=== PATIENT | male | born 1990 | race Caucasian/White ===

== ENCOUNTER 2017-11-27 13:48 | Inpatient (IN) | payer OTHER, MEDICAID ==
[2017-11-27] MEDS ORDERED: Iohexol 240 (50 ml) PO STA (14:51)
--- NOTE | 2017-11-27 15:04 | C.PDOC ---
History Of Present Illness 27 y/o male with no sig pmh, presents to ED with multiple episodes of vomiting since Monday, and diffuse abdominal pain which patient reports is sharp and constant. pt reports similar episode in past that resolved after 2 days. pt sts no bm yesterday. endorses drinking alcohol on Mon and Sat nights. pt took pepto bismol and advil with no relief. denies fever and chills. Time Seen by Provider: 11/27/17 14:35 Chief Complaint (Nursing): Abdominal Pain History/Exam Limitations: no limitations Onset/Duration Of Symptoms: Days (2) Current Symptoms Are (Timing): Still Present Severity: Severe Location Of Pain/Discomfort: Diffuse Radiation Of Pain To:: None Associated Symptoms: Nausea, Vomiting, Constipation, Urinary Symptoms. denies: Fever, Chills, Diarrhea Exacerbating Factors: None Alleviating Factors: None Last Bowel Movement: Yesterday Past Medical History Reviewed: Historical Data, Nursing Documentation, Vital Signs Vital Signs: Last Vital Signs Temp 98.4 F 11/27/17 17:00 Pulse 77 11/27/17 17:00 Resp 18 11/27/17 17:00 BP 162/92 H 11/27/17 17:58 Pulse Ox 96 11/27/17 17:00 - Medical History PMH: No Chronic Diseases Surgical History: No Surg Hx Family History: States: Unknown Family Hx - Social History Hx Tobacco Use: No Hx Alcohol Use: Yes Hx Substance Use: No - Immunization History Hx Tetanus Toxoid Vaccination: Yes Hx Influenza Vaccination: No Hx Pneumococcal Vaccination: No Review Of Systems Constitutional: Negative for: Fever, Chills Cardiovascular: Negative for: Chest Pain, Palpitations Respiratory: Negative for: Cough, Shortness of Breath Gastrointestinal: Positive for: Nausea, Vomiting, Abdominal Pain, Constipation. Negative for: Diarrhea Genitourinary: Positive for: Dysuria Skin: Negative for: Rash Neurological: Negative for: Weakness, Numbness Physical Exam - Physical Exam Appears: Non-toxic, Other (uncomfortable) Skin: Warm, Dry Head: Atraumatic, Normacephalic Oral Mucosa: Dry Neck: Supple Cardiovascular: Rhythm Regular, No Murmur Respiratory: No Decreased Breath Sounds, No Wheezing Gastrointestinal/Abdominal: Bowel Sounds, Soft, Tenderness (epigastric and right lower quadrant), Distention (mild), No Guarding, No Rebound Back: No CVA Tenderness Neurological/Psych: Oriented x3, Normal Speech, Normal Cognition ED Course And Treatment - Laboratory Results Result Diagrams: 11/27/17 15:14 11/27/17 15:14 O2 Sat by Pulse Oximetry: 96 Medical Decision Making Medical Decision Making: pt with a pain, nausea, vomiting. no bm, s/p drinking alcohol. labs, pepcid zofran ivf,. ct scan abdomen 1800 ct shows pancreatitis, consistent with lab work, discussed with Dr Mathews, will admit to her service. Disposition Discussed With : Josephine Mathews Doctor Will See Patient In The: Hospital - Disposition Disposition: HOSPITALIZED Disposition Time: 18:03 Condition: STABLE Forms: [facility] (Chilean) - Clinical Impression Clinical Impression: Acute pancreatitis
[2017-11-27] MEDS ORDERED: Sodium Chloride 0.9% 1,000 ML ONE ×2 (15:05→17:55)
[2017-11-27] MEDS ORDERED: Iohexol 240 (50 ml) ONE (15:06)
[2017-11-27 15:19] LABS: BASO % 0.2 % (0.0-2.0); EOS % 0.1 % (0.0-4.0); HEMOGLOBIN 16.6 g/dL (12.0-18.0); LYMPH # 1.2 K/uL (1.0-4.3); LYMPH % 9.1 % (20.0-40.0); MEAN CELL VOLUME 87.4 fL (80.0-94.0); MEAN CORPUSCULAR HGB CONC 34.3 g/dL (33.0-37.0); MEAN PLATELET VOLUME 7.8 fL (7.2-11.7); MONO # 1.3 K/uL (0.0-0.8); MONO % 10.1 % (0.0-10.0); NEUT # 10.4 K/uL (1.8-7.0); NEUT % 80.5 % (50.0-75.0); PLATELET COUNT 256 K/uL (130-400); RBC 5.55 Mil/uL (4.40-5.90); WHITE BLOOD COUNT 12.9 K/uL (4.8-10.8)
[2017-11-27 15:24] LABS: URINE BILIRUBIN NEGATIVE (NEGATIVE); URINE BLOOD NEGATIVE (NEGATIVE); URINE CLARITY Clear (Clear); URINE COLOR Yellow (YELLOW); URINE GLUCOSE (UA) NORMAL (Normal); URINE LEUKOCYTE ESTERASE NEG Leu/uL (Negative); URINE PROTEIN NEGATIVE (NEGATIVE); URINE UROBILINOGEN NORMAL mg/dL (0.2-1.0)
[2017-11-27 15:31] LABS: CALCIUM 9.4 mg/dl (8.6-10.4); GFR AFRICAN-AMERICAN > 60; GFR NON-AFRICAN AMERICAN > 60
[2017-11-27] MEDS ORDERED: Sodium Chloride 0.9% 1,000 ML IV ONE (15:31)
[2017-11-27 15:39] LABS: BANDS 1 % (0-2); LYMPHOCYTE 11 % (20-40); MONOCYTE 12 % (0-10); NEUTROPHIL 76 % (50-75); TOTAL CELLS COUNTED 100
[2017-11-27 15:40] LABS: PLATELET ESTIMATE NORMAL (NORMAL)
[2017-11-27 15:43] LABS: ALB/GLOB RATIO 1.4 (1.0-2.1); ALBUMIN 5.1 g/dL (3.5-5.0); ALT/SGPT 106 U/L (21-72); AST/SGOT 63 U/L (17-59); BLOOD UREA NITROGEN 11 mg/dL (9-20)
[2017-11-27 16:27] LABS: LIPASE 5997 U/L (23-300)
[2017-11-27] MEDS ORDERED: Iohexol 350mg/ml 100 ML ONE (16:39)
[2017-11-27 16:54] LABS: AMYLASE 1040 U/L (30-110)
--- NOTE | 2017-11-27 17:23 | CT ---
Date of service: 11/27/2017 PROCEDURE: CT Abdomen and Pelvis with contrast HISTORY: Abdominal/stomach pain COMPARISON: None. TECHNIQUE: Contrast dose: 100 cc Visipaque 320 Radiation dose: Total exam DLP = 970.57 mGy-cm. This CT exam was performed using one or more of the following dose reduction techniques: Automated exposure control, adjustment of the mA and/or kV according to patient size, and/or use of iterative reconstruction technique. FINDINGS: LOWER THORAX: Unremarkable. LIVER: Hepatic steatosis. No focal masses. No intrahepatic bile duct dilatation or perihepatic ascites. GALLBLADDER AND BILE DUCTS: Unremarkable. PANCREAS: Diffuse, mild inflammatory changes. These extend to the peripancreatic fat. No evidence of necrotizing pancreatitis. Trace fluid about the body and tail of the pancreas adjacent to the descending colon and left kidney. Similar less pronounced changes track inferiorly about the mesenteries and adjacent duodenum and small bowel. SPLEEN: Unremarkable. ADRENALS: Unremarkable. No mass. KIDNEYS AND URETERS: Unremarkable. No hydronephrosis. No solid mass. VASCULATURE: Unremarkable. No aortic aneurysm. BOWEL: Unremarkable. No obstruction. No gross mural thickening. APPENDIX: Normal appendix. PERITONEUM: Trace fluid in the abdomen and pelvis likely related to acute pancreatitis. LYMPH NODES: Unremarkable. No enlarged lymph nodes. BLADDER: Unremarkable. REPRODUCTIVE: Unremarkable. BONES: No acute fracture. OTHER FINDINGS: None. IMPRESSION: CT manifestations of acute pancreatitis, mild. No evidence of necrotizing pancreatitis. No visible pseudocyst or significant phlegmon. Additional benign and/or incidental findings described above.
[2017-11-27] MEDS ORDERED: Morphine 4 MG/ML VIAL ONE ×2 (17:55→19:59)
[2017-11-27] MEDS: Sodium Chloride 0.9% 1,000 ML IV SCH ×2 (18:00→23:39)
--- NOTE | 2017-11-27 18:50 | CP.PCM.HP ---
<WattIvan - Last Filed: 11/27/17 19:23> History of Present Illness - History of Present Illness History of Present Illness: Ivan Watt, Linesperson, Hospitalist History & Physical Patient is a 27 year old male with no known past medical history presenting with chief complaint of diffuse abdominal pain that began two days prior, accompanied by nausea, vomiting, and constipation. Patient states that the pain is sharp and constant with radiation to his back. He states he has been unable to eat or drink due to vomiting. He has had two episode of vomiting today. His vomit contained a small amount of blood, not more than a shot full. He states he drank approximately 20 beers this past weekend. His last drink was on Monday. He has tried pepto bismol and motrin to help alleviate his pain but they have not been effective. Past medical history: None Past surgical: None Social: Drinks approximately 6-8 beers per day Monday-Monday. Occasionally smokes cigarettes. Denies recreational drug use. Works as a cook. Allergies: NKDA Family history: Mother (DM) Home medications: None PMD: None HPI was obtained with the assistance of teacher [employer] Lottie [employer]. Present on Admission - Present on Admission Any Indicators Present on Admission: No History of DVT/PE: No History of Uncontrolled Diabetes: No Urinary Catheter: No Decubitus Ulcer Present: No History Surgical Site Infection Following: None Review of Systems - Constitutional Constitutional: absent: Fatigue, Fever, Headache - EENT Eyes: absent: Change in Vision Ears: absent: Abnormal Hearing Nose/Mouth/Throat: absent: Sore Throat - Cardiovascular Cardiovascular: absent: Chest Pain, Diaphoresis, Dyspnea - Respiratory Respiratory: absent: Cough, Dyspnea, Wheezing - Gastrointestinal Gastrointestinal: Abdominal Pain, Constipation, Hematemesis, Nausea, Vomiting - Genitourinary Genitourinary: absent: Dysuria, Flank Pain, Urinary Incontinence - Musculoskeletal Musculoskeletal: absent: Abnormal Gait, Joint Swelling, Muscle Weakness - Neurological Neurological: absent: Abnormal Movements, Convulsions, Headaches Past Patient History - Past Social History Smoking Status: Light Smoker < 10 Cigarettes Daily Alcohol: > 2 Drinks/Day Drugs: Denies - PSYCHIATRIC Hx Substance Use: No - SURGICAL HISTORY Hx Surgeries: No Meds Allergies/Adverse Reactions: Allergies Allergy/AdvReac Type Severity Reaction Status Date / Time No Known Allergies Allergy Unverified 11/27/17 14:10 Physical Exam - Constitutional Appears: Non-toxic, No Acute Distress - Head Exam Head Exam: ATRAUMATIC, NORMOCEPHALIC - Eye Exam Eye Exam: EOMI, Normal appearance - ENT Exam ENT Exam: Mucous Membranes Moist, Normal Exam, Normal External Ear Exam - Neck Exam Neck exam: Positive for: Normal Inspection. Negative for: Tenderness - Respiratory Exam Respiratory Exam: Clear to Auscultation Bilateral, NORMAL BREATHING PATTERN. absent: Rales, Rhonchi, Respiratory Distress - Cardiovascular Exam Cardiovascular Exam: REGULAR RHYTHM, +S1, +S2 - GI/Abdominal Exam GI & Abdominal Exam: Hypoactive Bowel Sounds, Soft, Tenderness (diffuse abd tenderness ). absent: Distended, Firm, Guarding - Back Exam Back exam: NORMAL INSPECTION - Neurological Exam Neurological exam: Alert, CN II-XII Intact, Oriented x3 - Psychiatric Exam Psychiatric exam: Normal Affect, Normal Mood - Skin Skin Exam: Dry, Intact, Normal Color Results - Vital Signs Recent Vital Signs: Last Vital Signs Temp 98.4 F 11/27/17 17:00 Pulse 77 11/27/17 17:00 Resp 18 11/27/17 17:00 BP 162/92 H 11/27/17 17:58 Pulse Ox 96 11/27/17 18:03 - Labs Result Diagrams: 11/27/17 15:14 11/27/17 15:14 Labs: Laboratory Results - last 24 hr 11/27/17 11/27/17 11/27/17 15:14 15:14 15:14 WBC 12.9 H RBC 5.55 Hgb 16.6 Hct 48.5 MCV 87.4 MCH 30.0 MCHC 34.3 RDW 14.0 Plt Count 256 MPV 7.8 Neut % (Auto) 80.5 H Lymph % (Auto) 9.1 L [place] % (Auto) 10.1 H Eos % (Auto) 0.1 Baso % (Auto) 0.2 Neut # (Auto) 10.4 H Lymph # (Auto) 1.2 [place]ro # (Auto) 1.3 H Eos # (Auto) 0.0 Baso # (Auto) 0.0 Neutrophils % (Manual) 76 H Band Neutrophils % 1 Lymphocytes % (Manual) 11 L Monocytes % (Manual) 12 H Platelet Estimate Normal Sodium 136 Potassium 4.9 Chloride 95 L Carbon Dioxide 23 Anion Gap 22 H BUN 11 Creatinine 0.7 L Est GFR ( Amer) > 60 Est GFR (Non-Af Amer) > 60 Random Glucose 103 Calcium 9.4 Magnesium Total Bilirubin 1.3 AST 63 H ALT 106 H Alkaline Phosphatase 67 Total Protein 8.8 H Albumin 5.1 H Globulin 3.7 Albumin/Globulin Ratio 1.4 Amylase Lipase 5997 H Urine Color Yellow Urine Clarity Clear Urine pH 5.0 Ur Specific Roy 1.023 Urine Protein Negative Urine Glucose (UA) Normal Urine Ketones 1+ H Urine Blood Negative Urine Nitrate Negative Urine Bilirubin Negative Urine Urobilinogen Normal Ur Leukocyte Esterase Neg Urine WBC (Auto) 1 Urine RBC (Auto) 2 Alcohol, Quantitative 11/27/17 16:39 WBC RBC Hgb Hct MCV MCH MCHC RDW Plt Count MPV Neut % (Auto) Lymph % (Auto) [place]ferro % (Auto) Eos % (Auto) Baso % (Auto) Neut # (Auto) Lymph # (Auto) [place]ro # (Auto) Eos # (Auto) Baso # (Auto) Neutrophils % (Manual) Band Neutrophils % Lymphocytes % (Manual) Monocytes % (Manual) Platelet Estimate Sodium Potassium Chloride Carbon Dioxide Anion Gap BUN Creatinine Est GFR ( Amer) Est GFR (Non-Af Amer) Random Glucose Calcium Magnesium 2.0 Total Bilirubin AST ALT Alkaline Phosphatase Total Protein Albumin Globulin Albumin/Globulin Ratio Amylase 1040 H Lipase Urine Color Urine Clarity Urine pH Ur Specific Roy Urine Protein Urine Glucose (UA) Urine Ketones Urine Blood Urine Nitrate Urine Bilirubin Urine Urobilinogen Ur Leukocyte Esterase Urine WBC (Auto) Urine RBC (Auto) Alcohol, Quantitative < 10 Assessment & Plan - Assessment and Plan (Free Text) Assessment: Patient is a 27 year old male with no known past medical history presenting with chief complaint of diffuse abdominal pain that began two days prior, accompanied by nausea, vomiting, and constipation and was found to have acute pancreatitis on abd/pelvis CT. Plan: Acute pancreatitis - CT Abdomen/pelvis shows diffuse, mild inflammatory changes of pancreas extending to peripancreatic fat. No evidence of necrotizing pancreatitis. No visible pseudocyst or significant phlegmon. - Abdominal US for evaluation of cholelithiasis and cbd - NS 200 ccs/hour - NPO - Lipid panel - Blood alcohol level <10 - [place] criteria: pending LDH - Lipase elevated at 5997 - GI consulted (Dr. العراقي) - Morphine 4 mg IV Q5H PRN severe pain Alcohol abuse - Last drink was on Monday - Ativan 1 mg IV q6H PRN for symptoms of alcohol withdrawal - [facility] protocol - Thiamine 100 mg IV x 1 day; folic acid - Will start multivitamin once able to tolerate PO intake - Seizure precautions - Aspiration precautions Overweight - TSH - Alcohol level in AM - Lipid panel Prophylaxis - Ambulatory - SCDs b/l while in bed Ivan Watt PGY 1 <Josephine Mathews V - Last Filed: 11/28/17 07:16> Results - Vital Signs Recent Vital Signs: Last Vital Signs Temp 99.3 F 11/27/17 20:55 Pulse 90 11/27/17 20:55 Resp 16 11/27/17 20:55 BP 170/100 H 11/27/17 20:55 Pulse Ox 97 11/27/17 20:55 - Labs Result Diagrams: 11/27/17 15:14 11/27/17 15:14 Labs: Laboratory Results - last 24 hr 11/27/17 11/27/17 11/27/17 15:14 15:14 15:14 WBC 12.9 H RBC 5.55 Hgb 16.6 Hct 48.5 MCV 87.4 MCH 30.0 MCHC 34.3 RDW 14.0 Plt Count 256 MPV 7.8 Neut % (Auto) 80.5 H Lymph % (Auto) 9.1 L [place]fer[place] % (Auto) 10.1 H Eos % (Auto) 0.1 Baso % (Auto) 0.2 Neut # (Auto) 10.4 H Lymph # (Auto) 1.2 [place]ro # (Auto) 1.3 H Eos # (Auto) 0.0 Baso # (Auto) 0.0 Neutrophils % (Manual) 76 H Band Neutrophils % 1 Lymphocytes % (Manual) 11 L Monocytes % (Manual) 12 H Platelet Estimate Normal Sodium 136 Potassium 4.9 Chloride 95 L Carbon Dioxide 23 Anion Gap 22 H BUN 11 Creatinine 0.7 L Est GFR ( Amer) > 60 Est GFR (Non-Af Amer) > 60 Random Glucose 103 Calcium 9.4 Magnesium Total Bilirubin 1.3 AST 63 H ALT 106 H Alkaline Phosphatase 67 Lactate Dehydrogenase Total Protein 8.8 H Albumin 5.1 H Globulin 3.7 Albumin/Globulin Ratio 1.4 Amylase Lipase 5997 H Urine Color Yellow Urine Clarity Clear Urine pH 5.0 Ur Specific Roy 1.023 Urine Protein Negative Urine Glucose (UA) Normal Urine Ketones 1+ H Urine Blood Negative Urine Nitrate Negative Urine Bilirubin Negative Urine Urobilinogen Normal Ur Leukocyte Esterase Neg Urine WBC (Auto) 1 Urine RBC (Auto) 2 Urine Opiates Screen Urine Methadone Screen Ur Barbiturates Screen Ur Phencyclidine Scrn Ur Amphetamines Screen U Benzodiazepines Scrn U Oth Cocaine Metabols U Cannabinoids Screen Alcohol, Quantitative 11/27/17 11/27/17 11/27/17 16:39 18:44 19:47 WBC RBC Hgb Hct MCV MCH MCHC RDW Plt Count MPV Neut % (Auto) Lymph % (Auto) Taliaferro % (Auto) Eos % (Auto) Baso % (Auto) Neut # (Auto) Lymph # (Auto) [place]ferro # (Auto) Eos # (Auto) Baso # (Auto) Neutrophils % (Manual) Band Neutrophils % Lymphocytes % (Manual) Monocytes % (Manual) Platelet Estimate Sodium Potassium Chloride Carbon Dioxide Anion Gap BUN Creatinine Est GFR ( Amer) Est GFR (Non-Af Amer) Random Glucose Calcium Magnesium 2.0 Total Bilirubin AST ALT Alkaline Phosphatase Lactate Dehydrogenase 1787 H Total Protein Albumin Globulin Albumin/Globulin Ratio Amylase 1040 H Lipase Urine Color Urine Clarity Urine pH Ur Specific Roy Urine Protein Urine Glucose (UA) Urine Ketones Urine Blood Urine Nitrate Urine Bilirubin Urine Urobilinogen Ur Leukocyte Esterase Urine WBC (Auto) Urine RBC (Auto) Urine Opiates Screen Positive H Urine Methadone Screen Negative Ur Barbiturates Screen Negative Ur Phencyclidine Scrn Negative Ur Amphetamines Screen Negative U Benzodiazepines Scrn Negative U Oth Cocaine Metabols Negative U Cannabinoids Screen Negative Alcohol, Quantitative < 10 Attending/Attestation - Attestation I have personally seen and examined this patient.: Yes I have fully participated in the care of the patient.: Yes I have reviewed all pertinent clinical information: Yes Notes (Text): This is a late computer entry for 11/27/2017. Patient seen in PT/track for an emergency room approximate 6 PM on 11/27/2017. Patient with a six-year period of frequent alcohol binging on the weekends primarily 6-10 beers of ibanez comes in after 1 day of abdominal pain with associated nausea and vomiting. This is patient's first episode. Patient denies any feeling of depression or hallucinations. Patient reports he drinks this because he hangs out with friends after work and he just get drunk. Patient is accompanied with his coughing at bedside who he last sure his medical information with. Patient had completed CAT scan after pelvis showed mild inflammatory changes of the pancreas extension extending to the pancreatic fat. No noted cholelithiasis on CAT scan. We will order for abdominal ultrasound to rule out any cholelithiasis or any dilated CPD given the patient is an overweight individual. Continue IV fluids patient will remain nothing by mouth. (Criteria patient is a 1 for noted elevated LDH with 1% mortality. Patient reports last drink was on Monday patient does not show any tremors coordination intact no hallucinations we will provide thiamine and folic acid multivitamin via IV until these transition to by mouth. We will check an A1c lipid panel given that he is overweight. Patient is an occasional smoker we'll start NicoDerm patch and be provided tobacco cessation counseling. Also please note UDS was positive for opiates but he did receive morphine prior to the collection. Admitting orders and assessment plan discussed with resident at time of admission. Assessment/Plan 1) Acute pancreatitis Assessment/Plan - GI consulted (Dr. العراقي) on consult-->help appreciated - CT Abdomen/pelvis shows diffuse, mild inflammatory changes of pancreas extending to peripancreatic fat. No evidence of necrotizing pancreatitis. No visible pseudocyst or significant phlegmon. - Abdominal US for evaluation of cholelithiasis and cbd - NS 200 ccs/hour - NPO - Lipid panel - Blood alcohol level <10 - [place] criteria: 1 (elevated LDH) - Lipase elevated at 5997 - Morphine 4 mg IV Q5H PRN severe pain 2) Alcohol abuse Assessment/Plan - Last drink was on Monday - Ativan 1 mg IV q6H PRN for symptoms of alcohol withdrawal - [facility] protocol - Thiamine 100 mg IV x 1 day; folic acid - Will start multivitamin once able to tolerate PO intake - Seizure precautions - Aspiration precautions 3) Overweight Assessment/Plan - TSH - Alcohol level in AM - Lipid panel - [id number] in AM 4) Tobacco Use Assessment/Plan - Tobacco cessation - Nicoderm patch daily 5) Elevated Blood Pressure w/o Diagnoses of Hypertension Assessment/Plan - Likely elevated secondary to pain - Morphine 4mg IV Q4 H PRN severe pain 6) Prophylaxis Assessment/Plan - Ambulatory - SCDs b/l while in bed
[2017-11-27] MEDS: Morphine 4 MG/ML VIAL IVP PRN (19:58)
[2017-11-27 22:16] LABS: BARBITURATES, UR NEGATIVE (NEGATIVE); BENZODIAZEPINES, UR NEGATIVE (NEGATIVE); PHENCYCLIDINE, UR NEGATIVE (NEGATIVE)
[2017-11-27 22:17] LABS: OPIATES, UR POSITIVE (NEGATIVE)
[2017-11-28] MEDS: Morphine 4 MG/ML VIAL IVP PRN ×3 (00:21→09:20)
[2017-11-28] MEDS: Sodium Chloride 0.9% 1,000 ML IV SCH (05:23)
--- NOTE | 2017-11-28 06:28 | CP.PCM.CON ---
<Moises Guevaraulysses - Last Filed: 11/28/17 08:54> History of Present Illness - History of Present Illness History of Present Illness: PGY-4 GI Fellow Initial Consult Note Mr. Stafford is a 27 yo HM with h/o EtOH abuse presenting with complaint of abdominal pain. He states over the last few days he has had progressively worse diffuse, sharp, radiating to his back abdominal pain associated with nausea and vomiting. States emesis once had a small amount of blood but was otherwise non-bloody, non-bilious. States that the drinks about 6-8 beers per night in the weekend but recently drank up to 20 beers one night over the weekend. Denied any fevers, chills, CP, SOB. States he is somewhat constipated. States last BM was 3 days prior described as black formed stool once, usually yellow or brown depending on what he eats. 12 point ROS negative other than stated above MHx: As above SurgHx: Denies Meds: None FamHx: M with DM SocHx: EtOH as above, some tobacco, denied illicits All: NKDA Past Patient History - Past Social History Smoking Status: Light Smoker < 10 Cigarettes Daily Alcohol: > 2 Drinks/Day Drugs: Denies - PSYCHIATRIC Hx Substance Use: No - SURGICAL HISTORY Hx Surgeries: No Meds Allergies/Adverse Reactions: Allergies Allergy/AdvReac Type Severity Reaction Status Date / Time No Known Allergies Allergy Unverified 11/27/17 14:10 - Medications Medications: Current Medications Sodium Chloride (Sodium Chloride 0.9%) 1,000 mls @ 200 mls/hr IV .Q5H [facility] Last Admin: 11/28/17 05:23 Dose: 200 mls/hr Folic Acid 1 mg/ Sodium (Chloride) 100.2 mls @ 60 mls/hr IV DAILY [facility] Lorazepam (Ativan) 1 mg IVP Q6H PRN PRN Reason: Anxiety Morphine Sulfate (Morphine) 4 mg IVP Q4H PRN PRN Reason: Pain, severe (8-10) Last Admin: 11/28/17 04:41 Dose: 4 mg Nicotine (Nicoderm Cq) 1 patch TD DAILY [facility] Ondansetron HCl (Zofran Inj) 4 mg IVP Q6 PRN PRN Reason: Nausea/Vomiting Pneumococcal Polyvalent Vaccine (Pneumovax 23 Vaccine) 0.5 ml IM .ONCE ONE Stop: 11/30/17 11:01 Thiamine HCl (Vitamin B1 Inj) 100 mg IV DAILY [facility] Results - Vital Signs Recent Vital Signs: Last Vital Signs Temp 98.7 F 11/28/17 04:05 Pulse 81 11/28/17 04:05 Resp 20 11/28/17 04:05 BP 162/94 H 11/28/17 04:05 Pulse Ox 95 11/28/17 00:45 - Labs Result Diagrams: 11/28/17 07:20 11/28/17 07:20 Labs: Laboratory Results - last 24 hr 11/27/17 11/27/17 11/27/17 15:14 15:14 15:14 WBC 12.9 H RBC 5.55 Hgb 16.6 Hct 48.5 MCV 87.4 MCH 30.0 MCHC 34.3 RDW 14.0 Plt Count 256 MPV 7.8 Neut % (Auto) 80.5 H Lymph % (Auto) 9.1 L Jones % (Auto) 10.1 H Eos % (Auto) 0.1 Baso % (Auto) 0.2 Neut # (Auto) 10.4 H Lymph # (Auto) 1.2 Jones # (Auto) 1.3 H Eos # (Auto) 0.0 Baso # (Auto) 0.0 Neutrophils % (Manual) 76 H Band Neutrophils % 1 Lymphocytes % (Manual) 11 L Monocytes % (Manual) 12 H Platelet Estimate Normal Sodium 136 Potassium 4.9 Chloride 95 L Carbon Dioxide 23 Anion Gap 22 H BUN 11 Creatinine 0.7 L Est GFR ( Amer) > 60 Est GFR (Non-Af Amer) > 60 Random Glucose 103 Calcium 9.4 Magnesium Total Bilirubin 1.3 AST 63 H ALT 106 H Alkaline Phosphatase 67 Lactate Dehydrogenase Total Protein 8.8 H Albumin 5.1 H Globulin 3.7 Albumin/Globulin Ratio 1.4 Amylase Lipase 5997 H Urine Color Yellow Urine Clarity Clear Urine pH 5.0 Ur Specific [place] 1.023 Urine Protein Negative Urine Glucose (UA) Normal Urine Ketones 1+ H Urine Blood Negative Urine Nitrate Negative Urine Bilirubin Negative Urine Urobilinogen Normal Ur Leukocyte Esterase Neg Urine WBC (Auto) 1 Urine RBC (Auto) 2 Urine Opiates Screen Urine Methadone Screen Ur Barbiturates Screen Ur Phencyclidine Scrn Ur Amphetamines Screen U Benzodiazepines Scrn U Oth Cocaine Metabols U Cannabinoids Screen Alcohol, Quantitative 11/27/17 11/27/17 11/27/17 16:39 18:44 19:47 WBC RBC Hgb Hct MCV MCH MCHC RDW Plt Count MPV Neut % (Auto) Lymph % (Auto) Jones % (Auto) Eos % (Auto) Baso % (Auto) Neut # (Auto) Lymph # (Auto) Jones # (Auto) Eos # (Auto) Baso # (Auto) Neutrophils % (Manual) Band Neutrophils % Lymphocytes % (Manual) Monocytes % (Manual) Platelet Estimate Sodium Potassium Chloride Carbon Dioxide Anion Gap BUN Creatinine Est GFR ( Amer) Est GFR (Non-Af Amer) Random Glucose Calcium Magnesium 2.0 Total Bilirubin AST ALT Alkaline Phosphatase Lactate Dehydrogenase 1787 H Total Protein Albumin Globulin Albumin/Globulin Ratio Amylase 1040 H Lipase Urine Color Urine Clarity Urine pH Ur Specific [place] Urine Protein Urine Glucose (UA) Urine Ketones Urine Blood Urine Nitrate Urine Bilirubin Urine Urobilinogen Ur Leukocyte Esterase Urine WBC (Auto) Urine RBC (Auto) Urine Opiates Screen Positive H Urine Methadone Screen Negative Ur Barbiturates Screen Negative Ur Phencyclidine Scrn Negative Ur Amphetamines Screen Negative U Benzodiazepines Scrn Negative U Oth Cocaine Metabols Negative U Cannabinoids Screen Negative Alcohol, Quantitative < 10 Assessment & Plan - Assessment and Plan (Free Text) Assessment: 27 yo male with h/o EtOH Abuse presenting with abdominal pain. # Acute Uncomplicated Pancreatitis: Pt with 3/3 criteria for diagnosis. Trigger related to excessive EtOH likely given consumption habits. Liver test w /o cholestatic picture to suggest stones. # EtOH Abuse: typically 6-8 beers per night on weekend with recent binge of 20 beers in one night. Plan: - Recommend LR over NS for IVF in pancreatitis (changed) - NPO except ice chips --- If pain significantly improved later can trial Clear Liquids - Daily CBC, CMP - F/u Abd US and FLP - Counseled on EtOH limitation/cessation - Monitor for EtOH withdrawal though doubt will occur given reportedly does not withdraw during the week Pt seen and examined with Dr. العراقي <Bertin العراقي - Last Filed: 11/28/17 09:29> Meds - Medications Medications: Current Medications Folic Acid 1 mg/ Sodium (Chloride) 100.2 mls @ 60 mls/hr IV DAILY [facility] Lactated Ringer's (Lactated Ringer's) 1,000 mls @ 200 mls/hr IV .Q5H [facility] Lorazepam (Ativan) 1 mg IVP Q6H PRN PRN Reason: Anxiety Morphine Sulfate (Morphine) 4 mg IVP Q4H PRN PRN Reason: Pain, severe (8-10) Last Admin: 11/28/17 04:41 Dose: 4 mg Nicotine (Nicoderm Cq) 1 patch TD DAILY [facility] Last Admin: 11/28/17 09:00 Dose: 1 patch Ondansetron HCl (Zofran Inj) 4 mg IVP Q6 PRN PRN Reason: Nausea/Vomiting Pneumococcal Polyvalent Vaccine (Pneumovax 23 Vaccine) 0.5 ml IM .ONCE ONE Stop: 11/30/17 11:01 Thiamine HCl (Vitamin B1 Inj) 100 mg IV DAILY [facility] Results - Vital Signs Recent Vital Signs: Last Vital Signs Temp 99.8 F H 11/28/17 07:00 Pulse 83 11/28/17 07:00 Resp 18 11/28/17 07:00 BP 161/95 H 11/28/17 07:00 Pulse Ox 98 11/28/17 07:00 - Labs Result Diagrams: 11/28/17 07:20 11/28/17 07:20 Labs: Laboratory Results - last 24 hr 11/27/17 11/27/17 11/27/17 15:14 15:14 15:14 WBC 12.9 H RBC 5.55 Hgb 16.6 Hct 48.5 MCV 87.4 MCH 30.0 MCHC 34.3 RDW 14.0 Plt Count 256 MPV 7.8 Neut % (Auto) 80.5 H Lymph % (Auto) 9.1 L Jones % (Auto) 10.1 H Eos % (Auto) 0.1 Baso % (Auto) 0.2 Neut # (Auto) 10.4 H Lymph # (Auto) 1.2 Jones # (Auto) 1.3 H Eos # (Auto) 0.0 Baso # (Auto) 0.0 Neutrophils % (Manual) 76 H Band Neutrophils % 1 Lymphocytes % (Manual) 11 L Monocytes % (Manual) 12 H Platelet Estimate Normal Sodium 136 Potassium 4.9 Chloride 95 L Carbon Dioxide 23 Anion Gap 22 H BUN 11 Creatinine 0.7 L Est GFR ( Amer) > 60 Est GFR (Non-Af Amer) > 60 Random Glucose 103 Hemoglobin A1c Calcium 9.4 Phosphorus Magnesium Total Bilirubin 1.3 AST 63 H ALT 106 H Alkaline Phosphatase 67 Lactate Dehydrogenase Total Protein 8.8 H Albumin 5.1 H Globulin 3.7 Albumin/Globulin Ratio 1.4 Triglycerides Cholesterol LDL Cholesterol Direct HDL Cholesterol Amylase Lipase 5997 H TSH 3rd Generation Urine Color Yellow Urine Clarity Clear Urine pH 5.0 Ur Specific [place] 1.023 Urine Protein Negative Urine Glucose (UA) Normal Urine Ketones 1+ H Urine Blood Negative Urine Nitrate Negative Urine Bilirubin Negative Urine Urobilinogen Normal Ur Leukocyte Esterase Neg Urine WBC (Auto) 1 Urine RBC (Auto) 2 Urine Opiates Screen Urine Methadone Screen Ur Barbiturates Screen Ur Phencyclidine Scrn Ur Amphetamines Screen U Benzodiazepines Scrn U Oth Cocaine Metabols U Cannabinoids Screen Alcohol, Quantitative Hepatitis A IgM Ab Hep Bs Antigen Hep B Core IgM Ab Hepatitis C Antibody HIV 1&2 Antibody Screen 11/27/17 11/27/17 11/27/17 16:39 18:44 19:47 WBC RBC Hgb Hct MCV MCH MCHC RDW Plt Count MPV Neut % (Auto) Lymph % (Auto) Jones % (Auto) Eos % (Auto) Baso % (Auto) Neut # (Auto) Lymph # (Auto) Jones # (Auto) Eos # (Auto) Baso # (Auto) Neutrophils % (Manual) Band Neutrophils % Lymphocytes % (Manual) Monocytes % (Manual) Platelet Estimate Sodium Potassium Chloride Carbon Dioxide Anion Gap BUN Creatinine Est GFR ( Amer) Est GFR (Non-Af Amer) Random Glucose Hemoglobin A1c Calcium Phosphorus Magnesium 2.0 Total Bilirubin AST ALT Alkaline Phosphatase Lactate Dehydrogenase 1787 H Total Protein Albumin Globulin Albumin/Globulin Ratio Triglycerides Cholesterol LDL Cholesterol Direct HDL Cholesterol Amylase 1040 H Lipase TSH 3rd Generation Urine Color Urine Clarity Urine pH Ur Specific [place] Urine Protein Urine Glucose (UA) Urine Ketones Urine Blood Urine Nitrate Urine Bilirubin Urine Urobilinogen Ur Leukocyte Esterase Urine WBC (Auto) Urine RBC (Auto) Urine Opiates Screen Positive H Urine Methadone Screen Negative Ur Barbiturates Screen Negative Ur Phencyclidine Scrn Negative Ur Amphetamines Screen Negative U Benzodiazepines Scrn Negative U Oth Cocaine Metabols Negative U Cannabinoids Screen Negative Alcohol, Quantitative < 10 Hepatitis A IgM Ab Hep Bs Antigen Hep B Core IgM Ab Hepatitis C Antibody HIV 1&2 Antibody Screen 07/31/18 07/31/18 07/31/18 07:20 07:20 07:20 WBC 11.0 H RBC 5.08 Hgb 15.4 Hct 44.7 MCV 87.9 MCH 30.4 MCHC 34.6 RDW 14.3 Plt Count 226 MPV 7.6 Neut % (Auto) 75.4 H Lymph % (Auto) 12.6 L Jones % (Auto) 11.6 H Eos % (Auto) 0.3 Baso % (Auto) 0.1 Neut # (Auto) 8.3 H Lymph # (Auto) 1.4 Jones # (Auto) 1.3 H Eos # (Auto) 0.0 Baso # (Auto) 0.0 Neutrophils % (Manual) Band Neutrophils % Lymphocytes % (Manual) Monocytes % (Manual) Platelet Estimate Sodium 138 Potassium 3.9 Chloride 98 Carbon Dioxide 27 Anion Gap 17 BUN 7 L Creatinine 0.8 Est GFR ( Amer) > 60 Est GFR (Non-Af Amer) > 60 Random Glucose 88 Hemoglobin A1c Calcium 9.0 Phosphorus 3.6 Magnesium 1.9 Total Bilirubin 0.6 AST 37 ALT 92 H Alkaline Phosphatase 64 Lactate Dehydrogenase Total Protein 6.9 Albumin 4.2 Globulin 2.6 Albumin/Globulin Ratio 1.6 Triglycerides 75 Cholesterol 159 LDL Cholesterol Direct 89 HDL Cholesterol 46 Amylase Lipase TSH 3rd Generation 2.65 Urine Color Urine Clarity Urine pH Ur Specific [place] Urine Protein Urine Glucose (UA) Urine Ketones Urine Blood Urine Nitrate Urine Bilirubin Urine Urobilinogen Ur Leukocyte Esterase Urine WBC (Auto) Urine RBC (Auto) Urine Opiates Screen Urine Methadone Screen Ur Barbiturates Screen Ur Phencyclidine Scrn Ur Amphetamines Screen U Benzodiazepines Scrn U Oth Cocaine Metabols U Cannabinoids Screen Alcohol, Quantitative Hepatitis A IgM Ab Negative Hep Bs Antigen Negative Hep B Core IgM Ab Negative Hepatitis C Antibody Negative HIV 1&2 Antibody Screen 11/28/17 11/28/17 07:20 08:07 WBC RBC Hgb Hct MCV MCH MCHC RDW Plt Count MPV Neut % (Auto) Lymph % (Auto) Jones % (Auto) Eos % (Auto) Baso % (Auto) Neut # (Auto) Lymph # (Auto) Jones # (Auto) Eos # (Auto) Baso # (Auto) Neutrophils % (Manual) Band Neutrophils % Lymphocytes % (Manual) Monocytes % (Manual) Platelet Estimate Sodium Potassium Chloride Carbon Dioxide Anion Gap BUN Creatinine Est GFR ( Amer) Est GFR (Non-Af Amer) Random Glucose Hemoglobin A1c 5.9 Calcium Phosphorus Magnesium Total Bilirubin AST ALT Alkaline Phosphatase Lactate Dehydrogenase Total Protein Albumin Globulin Albumin/Globulin Ratio Triglycerides Cholesterol LDL Cholesterol Direct HDL Cholesterol Amylase Lipase TSH 3rd Generation Urine Color Urine Clarity Urine pH Ur Specific [place] Urine Protein Urine Glucose (UA) Urine Ketones Urine Blood Urine Nitrate Urine Bilirubin Urine Urobilinogen Ur Leukocyte Esterase Urine WBC (Auto) Urine RBC (Auto) Urine Opiates Screen Urine Methadone Screen Ur Barbiturates Screen Ur Phencyclidine Scrn Ur Amphetamines Screen U Benzodiazepines Scrn U Oth Cocaine Metabols U Cannabinoids Screen Alcohol, Quantitative Hepatitis A IgM Ab Hep Bs Antigen Hep B Core IgM Ab Hepatitis C Antibody HIV 1&2 Antibody Screen Negative Attending/Attestation - Attestation I have personally seen and examined this patient.: Yes I have fully participated in the care of the patient.: Yes I have reviewed all pertinent clinical information: Yes Notes (Text): 11/28/17 09:18 I have seen and examined patient with GI fellow. Agree with above documentation with the following additions. In brief, this is a 27 year old male with history of ETOH abuse who presents to hospital with complaint of abdominal pain which started 3 days ago. He describes recent heavy ETOH consumption with over 20 drinks over the past weekend. He endorses sharp 10/10 intensity epigastric pain which radiates to back and has been associated with nausea and non-bloody emesis. He denies fever, chills, weight loss, or similar prior episodes. No prior endoscopic evaluation. Physical exam: HEENT: EOMI, KERRIE CV: RRR S1S2 Pulm: CTA B/L Abd: soft, generalized tenderness to palpation, no palpable hepato/splenomegaly Psych: mood, affect appropriate Skin: no suspicious lesions, warm, dry Neuro: AAO x 3, CN intact ETOH abuse Abdominal pain, acute pancreatitis CT imaging reviewed by me showing johnson-pancreatic edema and stranding - NPO - Continue with aggressive IVF hydration therapy - Pain control - ETOH cessation counseling - Anti-emetic therapy PRN - Will continue to monitor patient clinical course
--- NOTE | 2017-11-28 07:03 | CP.PCM.PN ---
<Josephine Mathews V - Last Filed: 11/28/17 16:34> Objective - Vital Signs/Intake and Output Vital Signs (last 24 hours): Temp Pulse Resp BP Pulse Ox 98.3 F 90 20 151/96 H 68 L 11/28/17 15:00 11/28/17 15:00 11/28/17 15:00 11/28/17 15:00 11/28/17 15:00 Intake and Output: 11/28/17 11/28/17 06:59 18:59 Intake Total 1200 Output Total 200 Balance 1000 - Medications Medications: Current Medications Folic Acid 1 mg/ Sodium (Chloride) 100.2 mls @ 60 mls/hr IV DAILY [facility] Last Admin: 11/28/17 09:30 Dose: 60 mls/hr Lactated Ringer's (Lactated Ringer's) 1,000 mls @ 200 mls/hr IV .Q5H [facility] Last Admin: 11/28/17 14:37 Dose: 200 mls/hr Lorazepam (Ativan) 1 mg IVP Q6H PRN PRN Reason: Anxiety Morphine Sulfate (Morphine) 2 mg IVP Q4 PRN PRN Reason: Pain, moderate (4-7) Morphine Sulfate (Morphine) 4 mg IVP Q4H PRN PRN Reason: Pain, severe (8-10) Nicotine (Nicoderm Cq) 1 patch TD DAILY [facility] Last Admin: 11/28/17 09:00 Dose: 1 patch Ondansetron HCl (Zofran Inj) 4 mg IVP Q6 PRN PRN Reason: Nausea/Vomiting Pneumococcal Polyvalent Vaccine (Pneumovax 23 Vaccine) 0.5 ml IM .ONCE ONE Stop: 11/30/17 11:01 Thiamine HCl (Vitamin B1 Inj) 100 mg IV DAILY [facility] Last Admin: 11/28/17 09:10 Dose: 100 mg - Labs Labs: 11/28/17 07:20 11/28/17 07:20 Attending/Attestation - Attestation I have personally seen and examined this patient.: Yes I have fully participated in the care of the patient.: Yes I have reviewed all pertinent clinical information, including history, physical exam and plan: Yes Notes (Text): Patient seen, examined, and case discussed with medical economics consultant. Patient seen this morning. He still reports he still has diffuse epigastric abdominal pain. Patient did take morphine but notes it does not resolve abdominal pain. He has seen and evaluated the patient this morning help appreciated. IV fluids changed from NS to LR. Patient continued to 100 mL/hr. He reports he does not want to eat. I also did indicate to patient that he needs to stop drinking alcohol it will exacerbate his abdominal pain and at risk for other things including pancreatic cancer if he gets recurrent bouts of pancreatitis. Patient noted to have A1c of 5.9 and he is in a stage formerly known as prediabetes and he needs to take better care of himself including diet refraining from alcohol which she should has a high sugar content. Assessment/Plan 1) Acute pancreatitis Assessment/Plan * GI consulted (Dr. العراقي) on consult-->help appreciated * CT Abdomen/pelvis shows diffuse, mild inflammatory changes of pancreas extending to peripancreatic fat. No evidence of necrotizing pancreatitis. No visible pseudocyst or significant phlegmon. * Abdominal US (11/28/17): echogenic liver, likely representing fatty infiltration or hepatic parenchyma disease. Visualized portions of pancreatic parenchyma appear mildy decreased in echogenicity which may represent pancreatitis as demonstrtaed on recent CT. Asymmetic kidneys with the left kidney larger than right * LR 200cc/hr * NPO * Lipid panel: T. cholestrol: 159, Cholestrol: 89, HDL: 46 * Blood alcohol level <10 * Arminto criteria: 1 (elevated LDH) * Repeat LDH * Lipase elevated at 5997 * Morphine 4 mg IV Q4H PRN severe pain * Morphine 2mg IV Q2H PRN moderate pain 2) Alcohol abuse Assessment/Plan * patient does not exhibit signs of withdrawal. No tremors. * Last drink was on Monday * Ativan 1 mg IV q6H PRN for symptoms of alcohol withdrawal * [facility] protocol * Thiamine 100 mg IV x 1 day; folic acid 1mg IV daily * Will start multivitamin once able to tolerate PO intake * Seizure precautions * Aspiration precautions 3) Overweight Assessment/Plan * thyroid studies normal * Lipid panel: T. cholestrol: 159, Cholestrol: 89, HDL: 46 * Hgba1c: 5.9 4) Impaired glucose tolerance Assessment/Plan * [employer] referral * Recommended for lifestyle and exercise modifications * will need repeat a1c in one year to prevent overt diabetes 5) Tobacco Use Assessment/Plan * Tobacco cessation * Nicoderm patch daily 6) Elevated Blood Pressure w/o Diagnoses of Hypertension Assessment/Plan * Likely elevated secondary to pain * Morphine 4mg IV Q4 H PRN severe pain * Morphine 2mg IV Q4H PRN moderate pain 7) Prophylaxis Assessment/Plan * Ambulatory * SCDs b/l while in bed Disposition: patient to continue IV fluids. She is nothing by mouth. Pain control. Continue to monitor. <Ivan Watt L - Last Filed: 11/28/17 17:49> Subjective - Date & Time of Evaluation Date of Evaluation: 11/28/17 Time of Evaluation: 07:03 - Subjective Subjective: Hospitalist Progress Note Patient examined at bedside. Patient states that his abdominal is improved compared to yesterday. States that he is still experiencing some nausea. Denies tremors, chest pain, shortness of breath, vomiting, dysuria. Objective - Vital Signs/Intake and Output Vital Signs (last 24 hours): Temp Pulse Resp BP Pulse Ox 98.7 F 81 20 162/94 H 95 11/28/17 04:05 11/28/17 04:05 11/28/17 04:05 11/28/17 04:05 11/28/17 00:45 Intake and Output: 11/28/17 11/28/17 06:59 18:59 Intake Total 1200 Output Total 200 Balance 1000 - Medications Medications: Current Medications Sodium Chloride (Sodium Chloride 0.9%) 1,000 mls @ 200 mls/hr IV .Q5H [facility] Last Admin: 11/28/17 05:23 Dose: 200 mls/hr Folic Acid 1 mg/ Sodium (Chloride) 100.2 mls @ 60 mls/hr IV DAILY [facility] Lorazepam (Ativan) 1 mg IVP Q6H PRN PRN Reason: Anxiety Morphine Sulfate (Morphine) 4 mg IVP Q4H PRN PRN Reason: Pain, severe (8-10) Last Admin: 11/28/17 04:41 Dose: 4 mg Nicotine (Nicoderm Cq) 1 patch TD DAILY [facility] Ondansetron HCl (Zofran Inj) 4 mg IVP Q6 PRN PRN Reason: Nausea/Vomiting Pneumococcal Polyvalent Vaccine (Pneumovax 23 Vaccine) 0.5 ml IM .ONCE ONE Stop: 11/30/17 11:01 Thiamine HCl (Vitamin B1 Inj) 100 mg IV DAILY [facility] - Labs Labs: 11/27/17 15:14 11/27/17 15:14 - Constitutional Appears: Non-toxic, No Acute Distress - Head Exam Head Exam: ATRAUMATIC, NORMAL INSPECTION - Eye Exam Eye Exam: EOMI - ENT Exam ENT Exam: Mucous Membranes Moist - Respiratory Exam Respiratory Exam: Clear to Ausculation Bilateral, NORMAL BREATHING PATTERN - Cardiovascular Exam Cardiovascular Exam: REGULAR RHYTHM, +S1, +S2 - GI/Abdominal Exam GI & Abdominal Exam: Soft, Tenderness (mildtenderness,diffusely), Hypoactive Bowel Sounds. absent: Distended, Firm, Guarding - Extremities Exam Extremities Exam: Normal Inspection - Back Exam Back Exam: NORMAL INSPECTION. absent: paraspinal tenderness - Neurological Exam Neurological Exam: Alert, Awake, Oriented x3 Neuro motor strength exam: Left Upper Extremity: 5, Right Upper Extremity: 5, Left Lower Extremity: 5, Right Lower Extremity: 5 - Psychiatric Exam Psychiatric exam: Normal Affect, Normal Mood Assessment and Plan - Assessment and Plan (Free Text) Plan: Acute pancreatitis - GI consulted (Dr. العراقي) on consult-->help appreciated, continue current management - CT Abdomen/pelvis shows diffuse, mild inflammatory changes of pancreas extending to peripancreatic fat. No evidence of necrotizing pancreatitis. No visible pseudocyst or significant phlegmon. - Abdominal US - no evidence of gallstones, fatty infiltration of the liver - LR at 200 ccs/hour - NPO - Lipid panel wnl - Blood alcohol level <10 - Basilio criteria: 1 (elevated LDH) - Lipase elevated at 5997 on admission - Morphine 4 mg IV Q5H PRN moderate pain Alcohol abuse - No active signs of withdrawal - Last drink was on Monday - Ativan 1 mg IV q6H PRN for symptoms of alcohol withdrawal - [facility] protocol - Thiamine 100 mg IV and folic acid 1mg IV one x per day - Will start multivitamin once able to tolerate PO intake - Seizure precautions - Aspiration precautions Obesity - BMI 31.2 - TSH 2.65 - Lipid panel total chol 159, Tri 75, LDL 89, HDL 46 Imparied glucose tolerance - HbA1c - 5.9 - Diet and lifestyle modifications - [employer] consult Tobacco Use - Tobacco cessation - Nicoderm patch daily Elevated Blood Pressure w/o Diagnoses of Hypertension - Likely elevated secondary to pain - Morphine 4mg IV Q4 H PRN moderate pain Prophylaxis - Ambulatory - SCDs b/l while in bed Ivan Watt PGY-1
[2017-11-28 07:46] LABS: BASO % 0.1 % (0.0-2.0); EOS % 0.3 % (0.0-4.0); HEMOGLOBIN 15.4 g/dL (12.0-18.0); LYMPH # 1.4 K/uL (1.0-4.3); LYMPH % 12.6 % (20.0-40.0); MEAN CELL VOLUME 87.9 fL (80.0-94.0); MEAN CORPUSCULAR HEMOGLOBIN 30.4 pg (27.0-31.0); MEAN CORPUSCULAR HGB CONC 34.6 g/dL (33.0-37.0); MEAN PLATELET VOLUME 7.6 fL (7.2-11.7); MONO # 1.3 K/uL (0.0-0.8); MONO % 11.6 % (0.0-10.0); NEUT # 8.3 K/uL (1.8-7.0); NEUT % 75.4 % (50.0-75.0); RBC 5.08 Mil/uL (4.40-5.90); RED CELL DISTRIBUTION WIDTH 14.3 % (11.5-14.5)
[2017-11-28 08:04] LABS: LDL CHOLESTEROL 89 mg/dL (0-129)
[2017-11-28 08:24] LABS: ALB/GLOB RATIO 1.6 (1.0-2.1); ALBUMIN 4.2 g/dL (3.5-5.0); ALT/SGPT 92 U/L (21-72); BLOOD UREA NITROGEN 7 mg/dL (9-20); GFR AFRICAN-AMERICAN > 60; GFR NON-AFRICAN AMERICAN > 60; HDL CHOLESTEROL 46 mg/dL (30-70)
[2017-11-28 08:28] LABS: HEPATITIS B SURFACE AG Negative (NEGATIVE)
[2017-11-28 08:34] LABS: HEPATITIS A IGM NEGATIVE (NEGATIVE); HEPATITIS B CORE AB NEGATIVE (NEGATIVE)
[2017-11-28 08:45] LABS: HEPATITIS C ANTIBODY NEGATIVE (NEGATIVE)
[2017-11-28] MEDS: Thiamine 100 mg/ml Inj IV SCH (09:10)
[2017-11-28 09:13] LABS: AST/SGOT 37 U/L (17-59)
[2017-11-28] MEDS: Lactated Ringer's 1,000 ML IV SCH ×3 (09:40→21:13)
--- NOTE | 2017-11-28 11:11 | US ---
HISTORY: abdominal pain COMPARISON: CT abdomen pelvis performed earlier same day TECHNIQUE: Sonographic evaluation of the abdomen. FINDINGS: LIVER: Liver demonstrates increased echogenicity, likely representing hepatic parenchymal disease or fatty infiltration. This limits evaluation for small masses. No focal large liver mass is identified. No intrahepatic biliary ductal dilatation is identified. GALLBLADDER: The gallbladder is physiologically distended. No gallstones, gallbladder wall thickening, or pericholecystic fluid is identified.No sonographic Cheney's sign was appreciated during the exam. COMMON BILE DUCT: Normal in caliber measuring 0.5 cm. PANCREAS: The visualized portions appear mildly decreased in echogenicity. The remainder of the pancreas is obscured by bowel gas. RIGHT KIDNEY: Measures 10.9cm. Unremarkable in echogenicity. No shadowing renal stone, cyst, or hydronephrosis is identified LEFT KIDNEY: Measures 12.9cm. Unremarkable in echogenicity. No shadowing renal stone, cyst, or hydronephrosis is identified SPLEEN: Measures 10.6cm. Normal in size and unremarkable in echotexture. AORTA: No aneurysmal dilatation of the visualized portions. IVC: Visualized portions are unremarkable.. OTHER FINDINGS: Trace ascites noted. IMPRESSION: Echogenic liver, likely representing fatty infiltration or hepatic parenchymal disease. Visualized portions of the pancreatic parenchyma appear mildly decreased in echogenicity which may represent pancreatitis as demonstrated on recent CT. Asymmetric kidneys with the left kidney larger than right. Preliminary impression was provided by [facility]. Major Findings are concordant.
[2017-11-28] MEDS ORDERED: Morphine 4 MG/ML VIAL IVP PRN (11:26)
[2017-11-29] MEDS: Morphine 4 MG/ML VIAL IVP PRN ×2 (00:39→08:09)
[2017-11-29] MEDS: Lactated Ringer's 1,000 ML IV SCH ×2 (04:08→20:20)
--- NOTE | 2017-11-29 06:38 | CP.PCM.PN ---
Subjective - Date & Time of Evaluation Date of Evaluation: 11/29/17 Time of Evaluation: 09:00 - Subjective Subjective: Medicine Progress Note for Dr. Mathews Patient was examined bedside. States that his pain is somewhat improved. Rates it a +5-6/10 today. States he did have an episode of loose bowel movement. Denies fever, chills, SOB, nausea, vomiting, dysuria. Objective - Vital Signs/Intake and Output Vital Signs (last 24 hours): Temp Pulse Resp BP Pulse Ox 98.4 F 85 20 152/97 H 98 11/29/17 04:00 11/29/17 04:00 11/29/17 04:00 11/29/17 04:00 11/29/17 04:00 Intake and Output: 11/28/17 11/29/17 18:59 06:59 Intake Total 1600 Output Total 700 Balance 900 - Medications Medications: Current Medications Folic Acid 1 mg/ Sodium (Chloride) 100.2 mls @ 60 mls/hr IV DAILY [facility] Last Admin: 11/28/17 09:30 Dose: 60 mls/hr Lactated Ringer's (Lactated Ringer's) 1,000 mls @ 200 mls/hr IV .Q5H [facility] Last Admin: 11/29/17 04:08 Dose: 200 mls/hr Lorazepam (Ativan) 1 mg IVP Q6H PRN PRN Reason: Anxiety Morphine Sulfate (Morphine) 2 mg IVP Q4 PRN PRN Reason: Pain, moderate (4-7) Morphine Sulfate (Morphine) 4 mg IVP Q4H PRN PRN Reason: Pain, severe (8-10) Last Admin: 11/29/17 00:39 Dose: 4 mg Nicotine (Nicoderm Cq) 1 patch TD DAILY [facility] Last Admin: 11/28/17 09:00 Dose: 1 patch Ondansetron HCl (Zofran Inj) 4 mg IVP Q6 PRN PRN Reason: Nausea/Vomiting Pneumococcal Polyvalent Vaccine (Pneumovax 23 Vaccine) 0.5 ml IM .ONCE ONE Stop: 11/30/17 11:01 Thiamine HCl (Vitamin B1 Inj) 100 mg IV DAILY [facility] Last Admin: 11/28/17 09:10 Dose: 100 mg - Labs Labs: 11/28/17 07:20 11/28/17 07:20 - Additional Findings Additional findings: - Constitutional Appears: Non-toxic, No Acute Distress - Head Exam Head Exam: ATRAUMATIC, NORMAL INSPECTION - Eye Exam Eye Exam: EOMI - ENT Exam ENT Exam: Mucous Membranes Moist - Respiratory Exam Respiratory Exam: Clear to Ausculation Bilateral, NORMAL BREATHING PATTERN - Cardiovascular Exam Cardiovascular Exam: REGULAR RHYTHM, +S1, +S2 - GI/Abdominal Exam GI & Abdominal Exam: Soft, Tenderness (mild tenderness,diffusely), Hypoactive Bowel Sounds. absent: Distended, Firm, Guarding - Extremities Exam Extremities Exam: Normal Inspection - Back Exam Back Exam: NORMAL INSPECTION. absent: paraspinal tenderness - Neurological Exam Neurological Exam: Alert, Awake, Oriented x3 Neuro motor strength exam: Left Upper Extremity: 5, Right Upper Extremity: 5, Left Lower Extremity: 5, Right Lower Extremity: 5 - Psychiatric Exam Psychiatric exam: Normal Affect, Normal Mood Assessment and Plan - Assessment and Plan (Free Text) Plan: Acute pancreatitis - GI consulted (Dr. العراقي) on consult-->help appreciated, continue current management - CT Abdomen/pelvis shows diffuse, mild inflammatory changes of pancreas extending to peripancreatic fat. No evidence of necrotizing pancreatitis. No visible pseudocyst or significant phlegmon. - Abdominal US - no evidence of gallstones, fatty infiltration of the liver - LR at 200 ccs/hour - Clear liquid diet. Will advance as tolerated. - Lipid panel wnl - Blood alcohol level <10 - [place] criteria: 1 on admission (LDH 1787 on admission). Repeat LDH level 535. - Lipase elevated at 5997 on admission - Morphine 2 mg IV Q4H PRN severe pain - Toradol 15 mg IV Q6H PRN moderate pain Alcohol abuse - No active signs of withdrawal - Last drink was on Monday - Ativan 1 mg IV q6H PRN for symptoms of alcohol withdrawal - [facility] protocol - Thiamine 100 mg IV and folic acid 1mg IV one x per day - Will start multivitamin once able to tolerate PO intake - Seizure precautions - Aspiration precautions Obesity - BMI 31.2 - TSH 2.65 - Lipid panel total chol 159, Tri 75, LDL 89, HDL 46 Imparied glucose tolerance - HbA1c - 5.9 - Diet and lifestyle modifications - Aquatics Instructor consult Tobacco Use - Tobacco cessation - Nicoderm patch daily Elevated Blood Pressure w/o Diagnoses of Hypertension - Likely elevated secondary to pain - Morphine 2mg IV Q4 H PRN severe pain - Toradol 15 mg IV Q6H PRN moderate pain Prophylaxis - Ambulatory - SCDs b/l while in bed Dispo: Pending resolution of abdominal pain and tolerating full diet. Ivan Watt PGY-1
--- NOTE | 2017-11-29 06:38 | CP.PCM.PN ---
<IsmaelMoisesulysses - Last Filed: 11/29/17 09:18> Subjective - Date & Time of Evaluation Date of Evaluation: 11/29/17 Time of Evaluation: 06:45 - Subjective Subjective: PGY-4 GI Fellow Prog Note Pt ambulating to bed when seen this AM. States pain is about the same though thinks he feels it more in his lower quadrants rather than upper this AM. Denied fevers, chills, N/V. 5 point ROS negative other than stated above Objective - Vital Signs/Intake and Output Vital Signs (last 24 hours): Temp Pulse Resp BP Pulse Ox 98.4 F 85 20 152/97 H 98 11/29/17 04:00 11/29/17 04:00 11/29/17 04:00 11/29/17 04:00 11/29/17 04:00 Intake and Output: 11/28/17 11/29/17 18:59 06:59 Intake Total 1600 Output Total 700 Balance 900 - Medications Medications: Current Medications Folic Acid 1 mg/ Sodium (Chloride) 100.2 mls @ 60 mls/hr IV DAILY [facility] Last Admin: 11/28/17 09:30 Dose: 60 mls/hr Lactated Ringer's (Lactated Ringer's) 1,000 mls @ 200 mls/hr IV .Q5H [facility] Last Admin: 11/29/17 04:08 Dose: 200 mls/hr Lorazepam (Ativan) 1 mg IVP Q6H PRN PRN Reason: Anxiety Morphine Sulfate (Morphine) 2 mg IVP Q4 PRN PRN Reason: Pain, moderate (4-7) Morphine Sulfate (Morphine) 4 mg IVP Q4H PRN PRN Reason: Pain, severe (8-10) Last Admin: 11/29/17 00:39 Dose: 4 mg Nicotine (Nicoderm Cq) 1 patch TD DAILY [facility] Last Admin: 11/28/17 09:00 Dose: 1 patch Ondansetron HCl (Zofran Inj) 4 mg IVP Q6 PRN PRN Reason: Nausea/Vomiting Pneumococcal Polyvalent Vaccine (Pneumovax 23 Vaccine) 0.5 ml IM .ONCE ONE Stop: 11/30/17 11:01 Thiamine HCl (Vitamin B1 Inj) 100 mg IV DAILY [facility] Last Admin: 11/28/17 09:10 Dose: 100 mg - Labs Labs: 11/28/17 07:20 11/28/17 07:20 - Constitutional Appears: Non-toxic, No Acute Distress - Head Exam Head Exam: ATRAUMATIC, NORMAL INSPECTION - Eye Exam Eye Exam: EOMI. absent: Conjunctival injection, Scleral icterus - ENT Exam ENT Exam: Mucous Membranes Dry, Normal External Ear Exam - Cardiovascular Exam Cardiovascular Exam: REGULAR RHYTHM, RRR. absent: Bradycardia, Tachycardia - GI/Abdominal Exam GI & Abdominal Exam: Soft, Tenderness (throughout but most in lower half), Normal Bowel Sounds. absent: Bruit, Distended, Firm, Guarding, Rigid - Neurological Exam Neurological Exam: Alert, Awake, Normal Gait Assessment and Plan - Assessment and Plan (Free Text) Assessment: 27 yo male with h/o EtOH Abuse presenting with abdominal pain. # Acute Uncomplicated Pancreatitis: Pt with 3/3 criteria for diagnosis. Trigger related to excessive EtOH likely given consumption habits. Liver test w /o cholestatic picture to suggest stones. Pain persistent today but not worse, nor fevers or worsening labs. Abd US with liver with fatty infiltration vs parenchymal disease. CBD 0.5 cm # EtOH Abuse: typically 6-8 beers per night on weekend with recent binge of 20 beers in one night. # Transamnitis: Not in typical EtOH pattern. Viral hep ruled out. Improving with supportive care. Plan: - Continue LR IVF since not taking much PO due to pain - CLD today, can advance to Full if tolerating clears later - Daily CBC, CMP - Counseled on EtOH limitation/cessation - Monitor for EtOH withdrawal Pt seen and examined with Dr. العراقي <Bertin العراقي - Last Filed: 11/29/17 12:25> Objective - Vital Signs/Intake and Output Vital Signs (last 24 hours): Temp Pulse Resp BP Pulse Ox 99.9 F H 81 18 156/95 H 97 11/29/17 08:38 11/29/17 08:38 11/29/17 08:38 11/29/17 08:38 11/29/17 08:38 Intake and Output: 11/29/17 11/29/17 06:59 18:59 Intake Total 3200 Output Total 950 Balance 2250 - Medications Medications: Current Medications Folic Acid 1 mg/ Sodium (Chloride) 100.2 mls @ 60 mls/hr IV DAILY [facility] Last Admin: 11/29/17 10:59 Dose: 60 mls/hr Lactated Ringer's (Lactated Ringer's) 1,000 mls @ 200 mls/hr IV .Q5H [facility] Last Admin: 11/29/17 04:08 Dose: 200 mls/hr Ketorolac Tromethamine (Toradol) 15 mg IVP Q6 PRN PRN Reason: Pain, moderate (4-7) Last Admin: 11/29/17 10:57 Dose: 15 mg Lorazepam (Ativan) 1 mg IVP Q6H PRN PRN Reason: Anxiety Morphine Sulfate (Morphine) 2 mg IVP Q4 PRN PRN Reason: Pain, severe (8-10) Nicotine (Nicoderm Cq) 1 patch TD DAILY [facility] Last Admin: 11/29/17 11:06 Dose: Not Given Ondansetron HCl (Zofran Inj) 4 mg IVP Q6 PRN PRN Reason: Nausea/Vomiting Pneumococcal Polyvalent Vaccine (Pneumovax 23 Vaccine) 0.5 ml IM .ONCE ONE Stop: 11/30/17 11:01 Thiamine HCl (Vitamin B1 Inj) 100 mg IV DAILY [facility] Last Admin: 11/29/17 10:59 Dose: 100 mg - Labs Labs: 11/29/17 06:47 11/29/17 06:47 Attending/Attestation - Attestation I have personally seen and examined this patient.: Yes I have fully participated in the care of the patient.: Yes I have reviewed all pertinent clinical information, including history, physical exam and plan: Yes Notes (Text): 11/29/17 12:23 I have seen and examined patient with GI fellow. No acute events overnight, he continues to endorse diffuse abdominal pain. He denies nausea, vomiting, fever/ chills. Review of vitals shows elevated BP. Abdominal pain Acute ETOH pancreatitis - Full liquid diet as tolerated - Continue with supportive care, IVF hydration - Pain control - Obtain lipid profile - Will continue to monitor clinical course
[2017-11-29 06:58] LABS: BASO % 0.2 % (0.0-2.0); EOS % 0.4 % (0.0-4.0); HEMOGLOBIN 15.1 g/dL (12.0-18.0); LYMPH # 1.1 K/uL (1.0-4.3); LYMPH % 10.2 % (20.0-40.0); MEAN CELL VOLUME 87.1 fL (80.0-94.0); MEAN CORPUSCULAR HGB CONC 34.5 g/dL (33.0-37.0); MEAN PLATELET VOLUME 7.1 fL (7.2-11.7); MONO # 1.2 K/uL (0.0-0.8); MONO % 11.1 % (0.0-10.0); NEUT # 8.7 K/uL (1.8-7.0); NEUT % 78.1 % (50.0-75.0); RBC 5.02 Mil/uL (4.40-5.90); WHITE BLOOD COUNT 11.1 K/uL (4.8-10.8)
[2017-11-29 07:14] LABS: ALB/GLOB RATIO 1.6 (1.0-2.1); ALBUMIN 4.3 g/dL (3.5-5.0); ALT/SGPT 74 U/L (21-72); AST/SGOT 44 U/L (17-59); BLOOD UREA NITROGEN 8 mg/dL (9-20); CALCIUM 9.3 mg/dl (8.6-10.4); GFR AFRICAN-AMERICAN > 60; GFR NON-AFRICAN AMERICAN > 60
[2017-11-29] MEDS: Thiamine 100 mg/ml Inj IV SCH (10:59)
[2017-11-29] MEDS ORDERED: Bisacodyl 5mg EC Tab PO ONE (21:39)
[2017-11-30] MEDS: Lactated Ringer's 1,000 ML IV SCH ×3 (03:00→08:10)
[2017-11-30 06:17] LABS: BASO % 0.1 % (0.0-2.0); EOS # 0.1 K/uL (0.0-0.7); EOS % 0.7 % (0.0-4.0); HEMOGLOBIN 14.7 g/dL (12.0-18.0); LYMPH # 1.1 K/uL (1.0-4.3); LYMPH % 9.4 % (20.0-40.0); MEAN CORPUSCULAR HEMOGLOBIN 30.5 pg (27.0-31.0); MEAN PLATELET VOLUME 7.3 fL (7.2-11.7); MONO # 1.3 K/uL (0.0-0.8); MONO % 10.9 % (0.0-10.0); NEUT # 9.6 K/uL (1.8-7.0); NEUT % 78.9 % (50.0-75.0); PLATELET COUNT 236 K/uL (130-400); RBC 4.83 Mil/uL (4.40-5.90); RED CELL DISTRIBUTION WIDTH 13.9 % (11.5-14.5); WHITE BLOOD COUNT 12.1 K/uL (4.8-10.8)
[2017-11-30 06:34] LABS: ALB/GLOB RATIO 1.4 (1.0-2.1); ALBUMIN 4.1 g/dL (3.5-5.0); ALT/SGPT 72 U/L (21-72); AST/SGOT 51 U/L (17-59); BLOOD UREA NITROGEN 6 mg/dL (9-20); GFR AFRICAN-AMERICAN > 60; GFR NON-AFRICAN AMERICAN > 60
[2017-11-30 08:53] LABS: LYMPHOCYTE 10 % (20-40); MONOCYTE 10 % (0-10); NEUTROPHIL 80 % (50-75); TOTAL CELLS COUNTED 100
[2017-11-30 08:54] LABS: PLATELET ESTIMATE NORMAL (NORMAL)
--- NOTE | 2017-11-30 09:06 | CP.PCM.PN ---
<Evan Guevara - Last Filed: 11/30/17 09:03> Subjective - Date & Time of Evaluation Date of Evaluation: 11/30/17 Time of Evaluation: 07:00 - Subjective Subjective: PGY-4 GI Fellow Prog Note Pt lying in bed when seen this AM. He states abd pain overall improved yesterday and tolerated liquid diet w/o sig increase in pain. This AM think pain got transiently worse again with an few episodes of emesis, once emesis had a little blood with it. Also states it has been about 3 days since his last BM. 5 point ROS negative other than stated above Objective - Vital Signs/Intake and Output Vital Signs (last 24 hours): Temp Pulse Resp BP Pulse Ox 100.2 F H 86 18 153/95 H 96 11/30/17 08:03 11/30/17 08:03 11/30/17 08:03 11/30/17 08:03 11/30/17 08:03 Intake and Output: 11/30/17 11/30/17 06:59 18:59 Intake Total 3320 Output Total 1250 Balance 2070 - Medications Medications: Current Medications Amlodipine Besylate (Norvasc) 5 mg PO DAILY [facility] Docusate Sodium (Colace) 100 mg PO BID [facility] Last Admin: 11/29/17 21:50 Dose: 100 mg Folic Acid 1 mg/ Sodium (Chloride) 100.2 mls @ 60 mls/hr IV DAILY [facility] Last Admin: 11/29/17 10:59 Dose: 60 mls/hr Lactated Ringer's (Lactated Ringer's) 1,000 mls @ 200 mls/hr IV .Q5H [facility] Last Admin: 11/30/17 08:10 Dose: Not Given Lorazepam (Ativan) 1 mg IVP Q6H PRN PRN Reason: Anxiety Morphine Sulfate (Morphine) 2 mg IVP Q4 PRN PRN Reason: Pain, severe (8-10) Last Admin: 11/30/17 08:03 Dose: 2 mg Nicotine (Nicoderm Cq) 1 patch TD DAILY [facility] Last Admin: 11/29/17 11:06 Dose: Not Given Ondansetron HCl (Zofran Inj) 4 mg IVP Q6 PRN PRN Reason: Nausea/Vomiting Last Admin: 11/29/17 23:55 Dose: 4 mg Pneumococcal Polyvalent Vaccine (Pneumovax 23 Vaccine) 0.5 ml IM .ONCE ONE Stop: 11/30/17 11:01 Thiamine HCl (Vitamin B1 Inj) 100 mg IV DAILY [facility] Last Admin: 11/29/17 10:59 Dose: 100 mg - Labs Labs: 11/30/17 06:11 11/30/17 06:11 - Constitutional Appears: Well, Non-toxic, No Acute Distress - Head Exam Head Exam: ATRAUMATIC, NORMAL INSPECTION - Eye Exam Eye Exam: EOMI. absent: Conjunctival injection, Scleral icterus - ENT Exam ENT Exam: Mucous Membranes Dry, Normal External Ear Exam. absent: Mucous Membranes Moist - Respiratory Exam Respiratory Exam: Clear to Ausculation Bilateral, NORMAL BREATHING PATTERN. absent: Accessory Muscle Use, Chest Wall Tenderness, Respiratory Distress - GI/Abdominal Exam GI & Abdominal Exam: Tenderness (mildly ttp thorughout but less tender than prior exams), Normal Bowel Sounds. absent: Bruit, Distended, Firm, Guarding, Rigid, Soft, Pulsatile Mass, Rebound Assessment and Plan - Assessment and Plan (Free Text) Assessment: 27 yo male with h/o EtOH Abuse presenting with abdominal pain. # Acute Uncomplicated Pancreatitis: Pt with 3/3 criteria for diagnosis. Trigger related to excessive EtOH likely given consumption habits. Liver test w /o cholestatic picture to suggest stones. Pain persistent today but not worse, nor fevers or worsening labs. Abd US with liver with fatty infiltration vs parenchymal disease. CBD 0.5 cm # EtOH Abuse: typically 6-8 beers per night on weekend with recent binge of 20 beers in one night. # Transamnitis: Not in typical EtOH pattern. Viral hep ruled out. Improving with supportive care. Plan: - Can DC IVF if continues to take good PO - Advance diet to Soft, low fat diet today - Daily CBC, CMP - Counseled on EtOH limitation/cessation - Monitor for EtOH withdrawal Pt seen and examined with Dr. العراقي <Bertin العراقي - Last Filed: 11/30/17 13:57> Objective - Vital Signs/Intake and Output Vital Signs (last 24 hours): Temp Pulse Resp BP Pulse Ox 100.2 F H 86 18 153/95 H 96 11/30/17 08:03 11/30/17 08:03 11/30/17 08:03 11/30/17 08:03 11/30/17 08:03 Intake and Output: 08/02/18 08/02/18 06:59 18:59 Intake Total 3320 Output Total 1250 Balance 2070 - Medications Medications: Current Medications Amlodipine Besylate (Norvasc) 5 mg PO DAILY [facility] Last Admin: 11/30/17 10:15 Dose: 5 mg Docusate Sodium (Colace) 100 mg PO BID [facility] Last Admin: 11/30/17 10:15 Dose: 100 mg Folic Acid 1 mg/ Sodium (Chloride) 100.2 mls @ 60 mls/hr IV DAILY [facility] Last Admin: 11/30/17 10:15 Dose: 60 mls/hr Lactated Ringer's (Lactated Ringer's) 1,000 mls @ 200 mls/hr IV .Q5H [facility] Last Admin: 11/30/17 08:10 Dose: Not Given Lorazepam (Ativan) 1 mg IVP Q6H PRN PRN Reason: Anxiety Morphine Sulfate (Morphine) 2 mg IVP Q4 PRN PRN Reason: Pain, severe (8-10) Last Admin: 11/30/17 08:03 Dose: 2 mg Nicotine (Nicoderm Cq) 1 patch TD DAILY [facility] Last Admin: 11/30/17 10:15 Dose: Not Given Ondansetron HCl (Zofran Inj) 4 mg IVP Q6 PRN PRN Reason: Nausea/Vomiting Last Admin: 11/29/17 23:55 Dose: 4 mg Thiamine HCl (Vitamin B1 Inj) 100 mg IV DAILY [facility] Last Admin: 11/30/17 10:15 Dose: 100 mg - Labs Labs: 11/30/17 06:11 11/30/17 06:11 Attending/Attestation - Attestation I have personally seen and examined this patient.: Yes I have fully participated in the care of the patient.: Yes I have reviewed all pertinent clinical information, including history, physical exam and plan: Yes Notes (Text): 11/30/17 13:54 I have seen and examined patient with GI fellow. No acute events overnight, he is seen resting in bed comfortably. He continues to report diffuse abdominal pain, though improved compared to prior day. He is tolerating PO liquids without difficulty. Abdominal pain Acute ETOH related pancreatitis - Advance diet to low fat as tolerated - Continue with supportive care, IVF hydration, pain control - Maintain bowel regimen to prevent constipation - ETOH cessation counseling - No further planned GI interventions, will sign off case. Suggest additional outpatient follow up. Please reconsult as necessary, thank you.
[2017-11-30] MEDS: Thiamine 100 mg/ml Inj IV SCH (10:15)
[2017-11-30] MEDS ORDERED: Pneumococcal 23-Valent Vaccine IM ONE (11:00)
--- NOTE | 2017-11-30 16:06 | CP.PCM.PN ---
Subjective - Date & Time of Evaluation Date of Evaluation: 11/30/17 Time of Evaluation: 07:45 - Subjective Subjective: PGY-1 Vikki Graham D.O. Medicine progress note for Dr. Rodas service: Patient was seen and examined this morning. He was sitting up in a chair next to his bed. He reports still having nausea. He specifically reports increased nausea with administration of morphine. Discussed giving zofran simultaneously. He is able to tolerate clear liquids. He still has abdominal pain and tenderness. He denies fever and chills. He denies urinary symptoms and he is having BMs. The importance of abstaining from alcohol was again stressed to the patient, and he acknowledged understanding. Objective - Vital Signs/Intake and Output Vital Signs (last 24 hours): Temp Pulse Resp BP Pulse Ox 100.2 F H 86 18 153/95 H 96 11/30/17 08:03 11/30/17 08:03 11/30/17 08:03 11/30/17 08:03 11/30/17 08:03 Intake and Output: 11/30/17 11/30/17 06:59 18:59 Intake Total 3320 Output Total 1250 Balance 2070 - Medications Medications: Current Medications Amlodipine Besylate (Norvasc) 5 mg PO DAILY [facility] Last Admin: 11/30/17 10:15 Dose: 5 mg Docusate Sodium (Colace) 100 mg PO BID [facility] Last Admin: 11/30/17 10:15 Dose: 100 mg Folic Acid 1 mg/ Sodium (Chloride) 100.2 mls @ 60 mls/hr IV DAILY [facility] Last Admin: 11/30/17 10:15 Dose: 60 mls/hr Lorazepam (Ativan) 1 mg IVP Q6H PRN PRN Reason: Anxiety Morphine Sulfate (Morphine) 2 mg IVP Q4 PRN PRN Reason: Pain, severe (8-10) Nicotine (Nicoderm Cq) 1 patch TD DAILY [facility] Last Admin: 11/30/17 10:15 Dose: Not Given Ondansetron HCl (Zofran Inj) 4 mg IVP Q6 PRN PRN Reason: Nausea/Vomiting Last Admin: 11/29/17 23:55 Dose: 4 mg Thiamine HCl (Vitamin B1 Inj) 100 mg IV DAILY [facility] Last Admin: 11/30/17 10:15 Dose: 100 mg - Labs Labs: 11/30/17 06:11 11/30/17 06:11 11/30/17 06:11 11/30/17 06:11 Total Bilirubin 0.7 mg/dL (0.2-1.3) 11/30/17 06:11 AST 51 U/L (17-59) 11/30/17 06:11 ALT 72 U/L (21-72) 11/30/17 06:11 Alkaline Phosphatase 94 U/L (38-126) 11/30/17 06:11 Amylase 1040 U/L (30-110) H 11/27/17 16:39 Lipase 5997 U/L (23-300) H 11/27/17 15:14 - Constitutional Appears: Well, No Acute Distress, Other (overweight) - Head Exam Head Exam: ATRAUMATIC, NORMAL INSPECTION, NORMOCEPHALIC - Eye Exam Eye Exam: EOMI, Normal appearance - ENT Exam ENT Exam: Mucous Membranes Moist, Normal Exam - Neck Exam Neck Exam: Normal Inspection - Respiratory Exam Respiratory Exam: Clear to Ausculation Bilateral, NORMAL BREATHING PATTERN - Cardiovascular Exam Cardiovascular Exam: REGULAR RHYTHM. absent: Murmur - GI/Abdominal Exam GI & Abdominal Exam: Soft, Tenderness (mild diffuse). absent: Mass, Rebound - Extremities Exam Extremities Exam: Full ROM, Normal Inspection - Back Exam Back Exam: NORMAL INSPECTION - Neurological Exam Neurological Exam: Alert, Awake, Normal Gait, Oriented x3 - Psychiatric Exam Psychiatric exam: Normal Affect, Normal Mood - Skin Skin Exam: Dry, Intact, Normal Color, Warm Assessment and Plan - Assessment and Plan (Free Text) Assessment: Patient is a 27 year old male with no known past medical history presenting with chief complaint of diffuse abdominal pain. He also has been unable to eat or drink due to vomiting. He is a binge drinker, approximately 20 beers over the weekend. His vomit contained a small amount of blood, not more than a shot full. He states he drank approximately 20 beers this past weekend. He was found to have acute pancreatitis. Plan: Acute pancreatitis- likely 2/2 to alcohol - GI consult (Dr. العراقي)- continue current management - CT Abdomen/pelvis shows diffuse, mild inflammatory changes of pancreas extending to peripancreatic fat. No evidence of necrotizing pancreatitis. No visible pseudocyst or significant phlegmon. - Abdominal US- no evidence of gallstones, fatty infiltration of the liver - LR at 200 cc/hour - Advanced diet to full liquids for dinner today- evaluate how patient tolerated - Lipid panel wnl - Blood alcohol level <10 - [place] criteria: 1 on admission (LDH 1787 on admission, repeat 535) - Lipase elevated at 5997 on admission, repeat 1040 - Morphine 2 mg IV Q4H PRN severe pain- give with Zofran 4 mg for nausea - Toradol 15 mg IV Q6H PRN moderate pain Alcohol abuse - No active signs of withdrawal - Last drink was on Monday - Ativan 1 mg IV q6H PRN for symptoms of alcohol withdrawal - [facility] protocol - Thiamine 100 mg IV and folic acid 1mg IV one x per day - Will start multivitamin once able to tolerate PO intake - Seizure precautions - Aspiration precautions Obesity - BMI 31.2 - TSH 2.65 - Lipid panel- total chol 159, Tri 75, LDL 89, HDL 46 Impaired glucose tolerance - HbA1c - 5.9 - Diet and lifestyle modifications - Starch Cooker consult Tobacco Use - Tobacco cessation - Nicoderm patch daily Elevated Blood Pressure w/o diagnosis of hypertension - Likely elevated secondary to pain - Morphine 2mg IV Q4 H PRN severe pain - Toradol 15 mg IV Q6H PRN moderate pain Prophylaxis - Ambulatory - SCDs b/l while in bed Dispo: Pending resolution of abdominal pain and tolerating full diet.
[2017-12-01 01:30] VITALS: RESP 20
[2017-12-01 04:55] VITALS: PULSE 89
[2017-12-01 06:52] LABS: BASO % 0.2 % (0.0-2.0); EOS # 0.2 K/uL (0.0-0.7); EOS % 1.3 % (0.0-4.0); HEMOGLOBIN 15.6 g/dL (12.0-18.0); LYMPH # 1.4 K/uL (1.0-4.3); LYMPH % 11.9 % (20.0-40.0); MEAN CELL VOLUME 86.4 fL (80.0-94.0); MEAN CORPUSCULAR HEMOGLOBIN 30.3 pg (27.0-31.0); MEAN CORPUSCULAR HGB CONC 35.1 g/dL (33.0-37.0); MEAN PLATELET VOLUME 7.3 fL (7.2-11.7); MONO # 1.4 K/uL (0.0-0.8); MONO % 12.2 % (0.0-10.0); NEUT # 8.6 K/uL (1.8-7.0); NEUT % 74.4 % (50.0-75.0); RBC 5.16 Mil/uL (4.40-5.90); RED CELL DISTRIBUTION WIDTH 13.7 % (11.5-14.5); WHITE BLOOD COUNT 11.5 K/uL (4.8-10.8)
[2017-12-01 07:01] LABS: ALB/GLOB RATIO 1.4 (1.0-2.1); ALBUMIN 4.2 g/dL (3.5-5.0); ALT/SGPT 77 U/L (21-72); AST/SGOT 57 U/L (17-59); BLOOD UREA NITROGEN 8 mg/dL (9-20); CALCIUM 9.3 mg/dl (8.6-10.4); GFR AFRICAN-AMERICAN > 60; GFR NON-AFRICAN AMERICAN > 60
--- NOTE | 2017-12-01 07:11 | CP.PCM.PN ---
Subjective - Date & Time of Evaluation Date of Evaluation: 12/01/17 Time of Evaluation: 07:10 - Subjective Subjective: Medicine Progress Note for Dr. Mathews Objective - Vital Signs/Intake and Output Vital Signs (last 24 hours): Temp Pulse Resp BP Pulse Ox 99.3 F 89 20 143/74 95 12/01/17 04:55 12/01/17 04:55 12/01/17 04:55 12/01/17 04:55 12/01/17 04:55 Intake and Output: 12/01/17 12/01/17 06:59 18:59 Intake Total 120 Output Total 600 Balance -480 - Medications Medications: Current Medications Amlodipine Besylate (Norvasc) 10 mg PO DAILY [facility] Docusate Sodium (Colace) 100 mg PO BID [facility] Last Admin: 11/30/17 17:16 Dose: 100 mg Folic Acid (Folic Acid) 1 mg PO DAILY [facility] Hydralazine HCl (Apresoline) 10 mg IVP Q6H PRN PRN Reason: Systolic Blood Pressure Morphine Sulfate (Morphine) 2 mg IVP Q4 PRN PRN Reason: Pain, severe (8-10) Last Admin: 12/01/17 06:32 Dose: 2 mg Multivitamins (Hexavitamin) 1 tab PO DAILY [facility] Nicotine (Nicoderm Cq) 1 patch TD DAILY [facility] Last Admin: 11/30/17 10:15 Dose: Not Given Ondansetron HCl (Zofran Inj) 4 mg IVP Q6 PRN PRN Reason: Nausea/Vomiting Last Admin: 11/30/17 17:16 Dose: 4 mg Thiamine HCl (Vitamin B1 Tab) 100 mg PO DAILY [facility] - Labs Labs: 12/01/17 06:35 12/01/17 06:35
[2017-12-01 07:56] VITALS: BP 143/89; TEMP 99.7; O2SAT 96
[2017-12-01] MEDS ORDERED: Multiple Vitamins Tab PO SCH (10:00)
--- NOTE | 2017-12-01 17:20 | CP.PCM.DIS ---
Provider - Provider Date of Admission: 11/30/17 15:47 Attending physician: Josephine Mathews DO Consults: Dr. العراقي Time Spent in preparation of Discharge (in minutes): 45 Diagnosis - Discharge Diagnosis (1) Acute pancreatitis Status: Resolved Hospital Course - Lab Results Lab Results: Most Recent Lab Values WBC 11.5 K/uL (4.8-10.8) H 12/01/17 06:35 RBC 5.16 Mil/uL (4.40-5.90) 12/01/17 06:35 Hgb 15.6 g/dL (12.0-18.0) 12/01/17 06:35 Hct 44.5 % (35.0-51.0) 12/01/17 06:35 MCV 86.4 fL (80.0-94.0) 12/01/17 06:35 MCH 30.3 pg (27.0-31.0) 12/01/17 06:35 MCHC 35.1 g/dL (33.0-37.0) 12/01/17 06:35 RDW 13.7 % (11.5-14.5) 12/01/17 06:35 Plt Count 272 K/uL (130-400) 12/01/17 06:35 MPV 7.3 fL (7.2-11.7) 12/01/17 06:35 Neut % (Auto) 74.4 % (50.0-75.0) 12/01/17 06:35 Lymph % (Auto) 11.9 % (20.0-40.0) L 12/01/17 06:35 [place] % (Auto) 12.2 % (0.0-10.0) H 12/01/17 06:35 Eos % (Auto) 1.3 % (0.0-4.0) 12/01/17 06:35 Baso % (Auto) 0.2 % (0.0-2.0) 12/01/17 06:35 Neut # (Auto) 8.6 K/uL (1.8-7.0) H 12/01/17 06:35 Lymph # (Auto) 1.4 K/uL (1.0-4.3) 12/01/17 06:35 [place] # (Auto) 1.4 K/uL (0.0-0.8) H 12/01/17 06:35 Eos # (Auto) 0.2 K/uL (0.0-0.7) 12/01/17 06:35 Baso # (Auto) 0.0 K/uL (0.0-0.2) 12/01/17 06:35 Neutrophils % (Manual) 80 % (50-75) H 11/30/17 06:11 Band Neutrophils % 1 % (0-2) 11/27/17 15:14 Lymphocytes % (Manual) 10 % (20-40) L 11/30/17 06:11 Monocytes % (Manual) 10 % (0-10) 11/30/17 06:11 Platelet Estimate Normal (NORMAL) 11/30/17 06:11 Sodium 133 mmol/L (132-148) 12/01/17 06:35 Potassium 3.8 mmol/L (3.6-5.2) 12/01/17 06:35 Chloride 93 mmol/L (98-107) L 12/01/17 06:35 Carbon Dioxide 26 mmol/L (22-30) 12/01/17 06:35 Anion Gap 18 (10-20) 12/01/17 06:35 BUN 8 mg/dL (9-20) L 12/01/17 06:35 Creatinine 0.8 mg/dL (0.8-1.5) 12/01/17 06:35 Est GFR ( Amer) > 60 12/01/17 06:35 Est GFR (Non-Af Amer) > 60 12/01/17 06:35 Random Glucose 101 mg/dL (75-110) 12/01/17 06:35 Hemoglobin A1c 5.9 % (4.2-6.5) 11/28/17 08:07 Calcium 9.3 mg/dl (8.6-10.4) 12/01/17 06:35 Phosphorus 3.9 mg/dL (2.5-4.5) 12/01/17 06:35 Magnesium 2.2 mg/dL (1.6-2.3) 12/01/17 06:35 Total Bilirubin 0.6 mg/dL (0.2-1.3) 12/01/17 06:35 AST 57 U/L (17-59) 12/01/17 06:35 ALT 77 U/L (21-72) H 12/01/17 06:35 Alkaline Phosphatase 116 U/L (38-126) 12/01/17 06:35 Lactate Dehydrogenase 535 U/L (313-618) 11/29/17 06:47 Total Protein 7.2 g/dL (6.3-8.3) 12/01/17 06:35 Albumin 4.2 g/dL (3.5-5.0) 12/01/17 06:35 Globulin 3.0 gm/dL (2.2-3.9) 12/01/17 06:35 Albumin/Globulin Ratio 1.4 (1.0-2.1) 12/01/17 06:35 Triglycerides 75 mg/dL (0-149) 11/28/17 07:20 Cholesterol 159 mg/dL (0-199) 11/28/17 07:20 LDL Cholesterol Direct 89 mg/dL (0-129) 11/28/17 07:20 HDL Cholesterol 46 mg/dL (30-70) 11/28/17 07:20 Amylase 1040 U/L (30-110) H 11/27/17 16:39 Lipase 5997 U/L (23-300) H 11/27/17 15:14 TSH 3rd Generation 2.65 mIU/L (0.46-4.68) 11/28/17 07:20 Urine Color Yellow (YELLOW) 11/27/17 15:14 Urine Clarity Clear (Clear) 11/27/17 15:14 Urine pH 5.0 (5.0-8.0) 11/27/17 15:14 Ur Specific [place] 1.023 (1.003-1.030) 11/27/17 15:14 Urine Protein Negative mg/dL (NEGATIVE) 11/27/17 15:14 Urine Glucose (UA) Normal mg/dL (Normal) 11/27/17 15:14 Urine Ketones 1+ mg/dL (NEGATIVE) H 11/27/17 15:14 Urine Blood Negative (NEGATIVE) 11/27/17 15:14 Urine Nitrate Negative (NEGATIVE) 11/27/17 15:14 Urine Bilirubin Negative (NEGATIVE) 11/27/17 15:14 Urine Urobilinogen Normal mg/dL (0.2-1.0) 11/27/17 15:14 Ur Leukocyte Esterase Neg Fitz/uL (Negative) 11/27/17 15:14 Urine WBC (Auto) 1 /hpf (0-5) 11/27/17 15:14 Urine RBC (Auto) 2 /hpf (0-3) 11/27/17 15:14 Urine Opiates Screen Positive (NEGATIVE) H 11/27/17 19:47 Urine Methadone Screen Negative (NEGATIVE) 11/27/17 19:47 Ur Barbiturates Screen Negative (NEGATIVE) 11/27/17 19:47 Ur Phencyclidine Scrn Negative (NEGATIVE) 11/27/17 19:47 Ur Amphetamines Screen Negative (NEGATIVE) 11/27/17 19:47 U Benzodiazepines Scrn Negative (NEGATIVE) 11/27/17 19:47 U Oth Cocaine Metabols Negative (NEGATIVE) 11/27/17 19:47 U Cannabinoids Screen Negative (NEGATIVE) 11/27/17 19:47 Alcohol, Quantitative < 10 mg/dl (0-10) 11/27/17 16:39 Hepatitis A IgM Ab Negative (NEGATIVE) 11/28/17 07:20 Hep Bs Antigen Negative (NEGATIVE) 11/28/17 07:20 Hep B Core IgM Ab Negative (NEGATIVE) 11/28/17 07:20 Hepatitis C Antibody Negative (NEGATIVE) 11/28/17 07:20 HIV 1&2 Antibody Screen Negative (NEGATIVE) 11/28/17 07:20 - Hospital Course Hospital Course: On admission: patient is a 27 year old male with no known past medical history presenting with chief complaint of diffuse abdominal pain that began two days prior, accompanied by nausea, vomiting, and constipation. Patient states that the pain is sharp and constant with radiation to his back. He states he has been unable to eat or drink due to vomiting. He has had two episode of vomiting today. His vomit contained a small amount of blood, not more than a shot full. He states he drank approximately 20 beers this past weekend. His last drink was on Monday. He has tried pepto bismol and motrin to help alleviate his pain but they have not been effective. During hospital stay: CT Abdomen/pelvis was done which showed diffuse, mild inflammatory changes of pancreas extending to peripancreatic fat. No evidence of necrotizing pancreatitis. No visible pseudocyst or significant phlegmon. GI was consulted. Abdominal ultrasound showed no evidence of gallstones, fatty infiltration of the liver. Patient was treated with LR at 200 ccs/hour and kept NPO. Lipid panel was unremarkable. Rnason criteria was 1 on admission. Lipase was elevated at 5997. Patient was given morphine and toradol for pain management. Patient was placed on CIWA protocol and ativan PRN for alcohol withdrawal. Patient was given thiamine and multivitamin. Patient was counseled on alcohol abuse and tobacco cessation. Patient was medically optimized for discharge. Per GI stand point was also stable for discharge. Patient as recommended to follow-up in the [facility] ([phone]) within one week. Patient was provided information on Alcoholic Anonymous for follow-up. Norvasc 10 mg was prescribed for blood pressure control. High blood pressure was deemed likely secondary to pain. *This is a summary of hospital events. Please refer to EMR for full hospitalization details. - Date & Time of H&P Date of H&P: 11/27/17 Time of H&P: 18:42 Discharge Exam - Additional Findings Additional findings: - Constitutional Appears: Non-toxic, No Acute Distress - Head Exam Head Exam: ATRAUMATIC, NORMOCEPHALIC - Eye Exam Eye Exam: EOMI, Normal appearance - ENT Exam ENT Exam: Mucous Membranes Moist, Normal Exam, Normal External Ear Exam - Neck Exam Neck exam: Positive for: Normal Inspection. Negative for: Tenderness - Respiratory Exam Respiratory Exam: Clear to Auscultation Bilateral, NORMAL BREATHING PATTERN. absent: Rales, Rhonchi, Respiratory Distress - Cardiovascular Exam Cardiovascular Exam: REGULAR RHYTHM, +S1, +S2 - GI/Abdominal Exam GI & Abdominal Exam: Hypoactive Bowel Sounds, Soft. absent: Distended, Firm, Guarding, Tenderness - Back Exam Back exam: NORMAL INSPECTION - Neurological Exam Neurological exam: Alert, CN II-XII Intact, Oriented x3 - Psychiatric Exam Psychiatric exam: Normal Affect, Normal Mood - Skin Skin Exam: Dry, Intact, Normal Color Discharge Plan - Discharge Medications Prescriptions: amLODIPine [Norvasc] 10 mg PO DAILY #30 tab Folic Acid 1 mg PO DAILY #30 tab Multivitamins [Hexavitamin] 1 tab PO DAILY #30 tab Nicotine 14 mg/24 hr [Nicoderm CQ] 1 patch TD DAILY 30 Days patch - Follow Up Plan Condition: GOOD Disposition: HOME/ ROUTINE Instructions: Heart Healthy Diet, Pancreatitis (DC), Alcohol Withdrawal (DC), Alcohol Abuse and Alcoholism (DC) Additional Instructions: Patient is medically stable discharge. Per Gi standpoint, stable. Patient is recommended to follow-up in the [facility] [phone]) within on week. Patient to be provided: 1) Norvasc 10mg one tab one a day for blood pressure control Patient to be provided informaiton on Alcoholic Anonymous for follow-up. Referrals: [facility] at [facility] [Outside]
== END 2017-12-01 15:34 | disposition home or self-care (01) | DRG 204 ==
LOC: C.ER 13:48 → C.9E 18:00 → C.6T 23:39 → OBSVTOIN 11-30 15:47
PROVIDERS: ADMIT Hospitalist; ATTEND Hospitalist
DX: K85.90 Acute pancreatitis without necrosis or infection, unspecified (principal); F10.239 Alcohol dependence with withdrawal, unspecified; E66.3 Overweight; F17.210 Nicotine dependence, cigarettes, uncomplicated; K59.00 Constipation, unspecified; K76.0 Fatty (change of) liver, not elsewhere classified; Z79.899 Other long term (current) drug therapy; Z83.3 Family history of diabetes mellitus; R73.03 Prediabetes; R03.0 Elevated blood-pressure reading, without diagnosis of hypertension